=== PATIENT | male | born 1980 | race Caucasian/White ===

== ENCOUNTER 2019-12-29 18:06 | Emergency (ER) | payer OTHER, SELFPAY ==
[2019-12-29 18:17] VITALS: BP 132/78; PULSE 106; RESP 16; TEMP 37.1; O2SAT 98
--- NOTE | 2019-12-29 18:25 | ED.GENADULT ---
HPI - General Adult General Chief complaint: Skin/Abscess/Foreign Body Stated complaint: poison jossy Time Seen by Provider: 12/29/19 18:25 Source: patient and RN notes reviewed Mode of arrival: ambulatory Limitations: no limitations History of Present Illness HPI narrative: 39-year-old male presents with complaints of red, raised, and itching rash with swelling around LT eye for 1 day. Gary says he was outside doing yard work and face came in contact with poison jossy. Denies new changes in personal hygiene products or laundry detergent. No new foods or medications. No burning, bleeding, or drainage. Denies fever, chills, headaches, weakness, fatigue, myalgia, facial swelling, or tongue swelling. Denies chest pain or dyspnea. Tolerating po intake well. The patient reports they have not been diagnosed with COVID-19. The patient reports they are not waiting for the results of a COVID-19 lab test. The patient reports they do not have fever, chills, weakness, fatigue, myalgia, or facial swelling. The patient reports they do not have a new or worsening cough or shortness of breath. Denies chest pain. The patient reports they do not have any rhinorrhea, congestion, sore throat, nausea, vomiting, abdominal pain, and diarrhea. Tolerating po intake well. Denies recent traveling. Denies concerns for COVID-19 or exposures been home since [id number] order except for essential household needs, working, and return home. At this time, patient is not suspected of having COVID-19. Some parts of this dictation were generated by voice recognition software and may contain typographical and/or grammatical inaccuracies. Related Data Allergies Allergy/AdvReac Type Severity Reaction Status Date / Time aspirin Allergy Unknown Unknown Verified 12/29/19 18:20 Review of Systems Review of Systems: Narrative: CONSTITUTIONAL: Denies fever, chills, sweats. EYES: Denies visual changes, redness, discharge. ENT: Denies rhinorrhea, congestion, sore throat, otalgia. CARDIOVASCULAR: Denies chest pain, palpitations, edema. RESPIRATORY: Denies dyspnea, wheezing, cough. GASTROINTESTINAL: Denies abdominal pain, nausea, vomiting, diarrhea. GENITOURINARY: Denies dysuria, hematuria, abnormal discharge SKIN: Complaints of red, raised, and itching rash with swelling around LT eye . Denies drainage. MUSCULOSKELETAL: Denies acute back pain, joint pain, or myalgia. NEUROLOGIC: Denies numbness or focal weakness. PSYCHIATRIC: Denies anxiety or depression. All other systems reviewed & are unremarkable except as noted in HPI and below. [facility] Past Medical History Medical History (Updated 12/30/19 @ 00:00 by Jasmin Melendez) Asthma Surgical History Surgical History (Updated 12/29/19 @ 18:36 by LAMBERTO Tobar) No significant past surgical history Family History Family History (Updated 12/29/19 @ 18:36 by LAMBERTO Tobar) Father Hypertension Mother Alcohol abuse Social History Social History (Updated 12/31/19 @ 13:18 by Tracy Brown [facility]) Smoking packs per day: 1.5 Smoking cigarettes per day: 30.0 Years smoked: 20 Smoking pack-years: 30.00 Smoking status: Current every day smoker Tobacco type: cigarettes Second hand tobacco smoke exposure: No Alcohol intake: never Substance use: current Substance use type: marijuana Gender identity (if verbalized by the patient): Male Comments At time of signature, agree with nurse past medical, surgical, social, and family history. There is no relevant family history pertinent to the presenting complaint. Exam Narrative: Exam Narrative: GENERAL: This is a well-nourished, well-developed patient, in no apparent distress. Talking in full sentences without deficit and ambulate with steady gait without dyspnea. HEAD: normocephalic, atraumatic. EYES: PERRL. Bilateral sclera clear/white, no swelling, no tenderness on palpation to eye. Vision is grossly int
[2019-12-29] MEDS: methylPREDNISolone SOD SUCC 125 MG VIAL IM (18:34)
--- NOTE | 2019-12-29 19:02 | PC.NURSE ---
Patient has an episode of lightheadedness, nausea, and B/P drop post solu-medrol injection--1844-called to room feeling lightheaded, color pale and sweating-laid down and feet elevated--BP 102/60 range--sweating and feeling nauseated-given cool towel for head. 1849-dry heaves-turned to side -B/P-110/60's--feeling a little better after dry heaving. States he feels better on his side. 1854-B/P 110/60 reports he is feeling much better. Color improved. Had patient continue to lay on side. 1899 assisted to a sitting posting--Denies any further lightheadedness--color pink. 1904 Discharged. B/P remains 110/60 range at discharge.
== END 2019-12-29 19:05 | disposition home or self-care (01) ==
PROVIDERS: Emergency Provider Nurse Practitioner Family; PCP Internal Medicine
DX: L23.7 Allergic contact dermatitis due to plants, except food (principal); F17.210 Nicotine dependence, cigarettes, uncomplicated
CPT/HCPCS: 96372; 99213; G0463; J2930

== ENCOUNTER 2020-01-19 14:49 | Emergency (ER) | payer OTHER, SELFPAY ==
[2020-01-19 14:58] VITALS: BP 158/88; PULSE 113; RESP 20; TEMP 37.4; O2SAT 98
--- NOTE | 2020-01-19 15:16 | ED.SKABFB ---
HPI - Skin/Abscess/Foreign Bdy General Chief complaint: Wound/Laceration Stated complaint: tick bite Time Seen by Provider: 01/19/20 15:08 Source: patient and RN notes reviewed Mode of arrival: ambulatory Limitations: no limitations History of Present Illness HPI narrative: Patient presents today complaining of a tick bite to the left chest. He first noticed a tick 3 days ago and pulled it out. Since that time, redness has worsened. Denies any current pain. He has tried no OTC treatment prior to arrival. MD complaint: insect bite/sting Related Data Allergies Allergy/AdvReac Type Severity Reaction Status Date / Time aspirin Allergy Unknown Other Verified 01/19/20 15:09 Review of Systems Review of Systems: Narrative: CONSTITUTIONAL: Denies body aches, fever, chills, or sweats. EYES: Denies visual changes, redness, or discharge. ENT: Denies rhinorrhea, congestion, sore throat, or otalgia. CARDIOVASCULAR: Denies chest pain, palpitations, or edema. RESPIRATORY: Denies cough or dyspnea. GASTROINTESTINAL: Denies abdominal pain, nausea, vomiting, or diarrhea. GENITOURINARY: Denies dysuria or hematuria. SKIN: Denies rash, itching, or wounds. + Insect bite to left chest MUSCULOSKELETAL: Denies back pain, joint pain, or myalgia. NEUROLOGIC: Denies headache, numbness, tingling, or weakness. PSYCH: Denies depression or anxiety. [facility] Past Medical History Medical History (Updated 01/19/20 @ 15:18 by Jena Chaves, LAMBERTO, ) Asthma Surgical History Surgical History (Updated 12/29/19 @ 18:36 by TIFFANY TobarP) No significant past surgical history Family History Family History (Updated 12/29/19 @ 18:36 by LAMBERTO Tobar) Father Hypertension Mother Alcohol abuse Social History Social History (Updated 12/31/19 @ 13:18 by Tracy Brown [facility]) Smoking packs per day: 1.5 Smoking cigarettes per day: 30.0 Years smoked: 20 Smoking pack-years: 30.00 Smoking status: Current every day smoker Tobacco type: cigarettes Second hand tobacco smoke exposure: No Alcohol intake: never Substance use: current Substance use type: marijuana Gender identity (if verbalized by the patient): Male Comments At time of signature, I have reviewed and agree with nursing past medical, surgical, social and family history unless otherwise noted. Please see nursing chart for further information. There is no relevant family history pertinent to the presenting complaint Exam Narrative: Exam Narrative: GENERAL: Well-appearing, well-nourished, and in no acute distress. HEAD: Normocephalic, atraumatic. EYES: EOMI. No redness or drainage. Conjunctivae normal. ENT: Mucous membranes pink and moist. NECK: Normal AROM. CHEST: No respiratory distress. EXTREMITIES: Normal range of motion. No edema. SKIN: Warm, dry, no rash. Capillary refill normal. Normal skin turgor. 6cm area of circular erythema to left upper chest with 1cm center induration and puncture wound. No fluctuance. Does not appear to be erythema migrans as there is no clearing of a portion of the rash. Erythema does not appear as bulls eye pattern. NEURO: No focal deficits. Alert and oriented x3. Gait steady. PSYCH: Normal affect. No signs of depression or anxiety. Course Vital Signs Vital signs: Vital Signs Temperature 99.3 F 01/19/20 14:58 Pulse Rate 113 H 01/19/20 14:58 Respiratory Rate 01/19/20 14:58 Blood Pressure 158/88 H 01/19/20 14:58 Pulse Oximetry 98 01/19/20 14:58 Temperature 99.3 F 01/19/20 14:58 Pulse Rate 113 H 01/19/20 14:58 Respiratory Rate 01/19/20 14:58 Blood Pressure 158/88 H 01/19/20 14:58 Pulse Oximetry 98 01/19/20 14:58 Reviewed. Pt has been instructed to follow up with his PCP regarding his elevated blood pressure today. MDM - Skin/Abscess/Foreign Bdy Differential Diagnosis Differential diagnosis: Likely abscess of skin or subcutaneous tissu
== END 2020-01-19 15:21 | disposition home or self-care (01) ==
PROVIDERS: Emergency Provider Nurse Practitioner; PCP Internal Medicine
DX: S20.362A Insect bite (nonvenomous) of left front wall of thorax, initial encounter (principal); J45.909 Unspecified asthma, uncomplicated; F17.210 Nicotine dependence, cigarettes, uncomplicated; R03.0 Elevated blood-pressure reading, without diagnosis of hypertension; W57.XXXA Bitten or stung by nonvenomous insect and other nonvenomous arthropods, initial encounter
CPT/HCPCS: 99213; G0463

== ENCOUNTER 2024-07-03 14:53 | Emergency (ER) | payer OTHER, MEDICAID, SELFPAY ==
--- NOTE | 2024-07-03 15:13 | ED.URI ---
HPI - URI/Sore Throat General Chief Complaint: Upper Respiratory Infection Stated Complaint: Sinus/Cough Time Seen by Provider: 07/03/24 15:13 Source: patient, RN notes reviewed and old records reviewed Mode of arrival: ambulatory Limitations: no limitations Related Data Home Medications Medication Instructions Recorded Confirmed loratadine 10 mg tablet (Claritin) 10 mg PO DAILY 12/19/23 07/03/24 Allergies Allergy/AdvReac Type Severity Reaction Status Date / Time aspirin Allergy Unknown Other Verified 07/03/24 15:04 Review of Systems Review of Systems: All systems reviewed & are unremarkable except as noted in HPI and below Constitutional: Constitutional: Reports no additional constitutional complaints ENT: Reports system reviewed and no additional complaints, except as documented Cardiovascular: Cardiovascular: Reports no additional cardiovascular complaints Respiratory: Respiratory: Reports no additional respiratory complaints Gastrointestinal: Gastrointestinal: Reports no additional gastrointestinal complaints [facility] Past Medical History Medical History Asthma Surgical History Surgical History No significant past surgical history Family History Family History Father Hypertension Diabetes mellitus Mother Alcohol abuse Depression Anxiety Social History Social History Smoking packs per day: 1 Smoking cigarettes per day: 20.0 Years smoked: 30 Smoking pack-years: 30.00 Smoking status: Current every day smoker Tobacco type: cigarettes Second hand tobacco smoke exposure: No Alcohol intake: never Substance use: current Substance use type: marijuana Do You Feel Safe in your Home?: Yes Lack of Transportation: No Lack of Food: Never True Current Housing: I Have Housing Concerned About Future Housing: No Difficulty Paying Gas/Electric Bills: No Difficulty Paying for Meds: No Currently Unemployed: No Education: High School Diploma/GED Difficulty w/ Childcare or Family Care: No Living arrangements: with family Occupation/Education: occupation Gender identity (if verbalized by the patient): Male Comments At the time of my signature, I reviewed and agree with the nursing past medical, surgical, social, and family history. There is no relevant family history pertinent to the patient complaint. Exam Const: General: cooperative, no acute distress, alert and awake Orientation/consciousness: oriented to person, oriented to place and oriented to time HENMT: Head: normal to inspection Resp: Effort & Inspection: normal respiratory effort and able to speak in complete sentences Auscultation: clear to auscultation bilaterally, no crackles, no rales, no rhonchi and no wheezes Cardio: Palpation: normal PMI Rate: regular rate Rhythm: regular rhythm Heart sounds: S1 normal heart sound present and S2 normal heart sound present Neuro: General: oriented to person, oriented to place and oriented to time Cranial nerves: Yes CN's II-XII intact bilaterally Psych: Appearance: grossly normal Thought process: Normal thought process present Insight: Good insight present (Psych) Judgement: Good judgement present (Psych) Course Course Level of Care: Express Care Visit Vital Signs Vital signs: Reviewed Discharge Plan Discharge Clinical Impression: Pneumonia Patient Disposition: Home, Self-Care Condition: Stable Instructions: Antibiotic Form, Pneumonia (ED) Additional Instructions: Take medications as prescribed. Emergency department for new or worse symptoms. Follow up with primary care provider Patient Language: Lithuanian Prescriptions: New azithromycin 250 mg tablet See Rx Instructions .ROUTE .COMPLEX Qty: 6 0RF Rx Instructions: For 250 mg dose pack: take 500 mg today (day 1), then 250 mg for 4 days (days 2-5) prednisone 50 mg tablet 50 mg PO DAILY Qty: 5 0RF albuterol sulfate [Ventolin HFA] 90 mcg/actuation HFA aerosol inhaler 2 puff inhalation QID PRN (Reason: shortness of breath or wheezing) Qty: 8.5 0RF No Action loratadine [Claritin] 10 mg tablet 10 mg PO DAILY atorvastatin 10 mg tablet 10 mg PO QHS Qty: 90 0RF Rx Instructions: DUE FOR APPOINTMENT IN [facility] Follow-up/Referrals: Gonzales Jimenez DO [Primary Care Provider] - 2 Weeks Stand Alone Forms: Work/School Release IP Time of Disposition: 15:32
[2024-07-03 15:15] VITALS: BP 152/89; PULSE 93; RESP 18; O2SAT 98
== END 2024-07-03 15:35 | disposition home or self-care (01) ==
PROVIDERS: Emergency Provider Nurse Practitioner Family; PCP Internal Medicine
DX: J18.9 Pneumonia, unspecified organism (principal); F17.210 Nicotine dependence, cigarettes, uncomplicated; F12.90 Cannabis use, unspecified, uncomplicated; J45.909 Unspecified asthma, uncomplicated
CPT/HCPCS: 99213; G0463

== ENCOUNTER 2024-10-02 09:12 | Emergency (ER) | payer OTHER, MEDICAID, SELFPAY ==
[2024-10-02 09:37] VITALS: BP 155/94; PULSE 102; RESP 16; TEMP 36.7; O2SAT 98
--- NOTE | 2024-10-02 10:00 | ED_ITS ---
HPI - General Adult General Chief complaint: Skin/Abscess/Foreign Body Stated complaint: knot on butt History of Present Illness HPI narrative: Gary Mcgee is a 44-year-old male who presents today with past medical history high cholesterol, smoker who reports that 3 days ago he noticed a painful bump on his right butt cheek. He states that he thinks the swelling has gone down some but he still having pain to the area. He denies noticing drainage to the area. He denies any fevers. 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 Related Data Home Medications ?Medication ?Instructions ?Recorded ?Confirmed ?Last Taken ?Type loratadine 10 mg tablet (Claritin) 10 mg PO DAILY 12/19/23 10/02/24 Unknown H istory Allergies Allergy/AdvReac Type Severity Reaction Status Date / Time aspirin Allergy Unknown Other Verified 10/02/24 09:30 Review of Systems Review of Systems: All systems reviewed & are unremarkable except as noted in HPI and below PMFSH Past Medical History Medical History Asthma Surgical History Surgical History No significant past surgical history Family History Family History Father Hypertension Diabetes mellitus Mother Alcohol abuse Depression Anxiety Social History Social History Smoking packs per day: 1 Smoking cigarettes per day: 20.0 Years smoked: 30 Smoking pack-years: 30.00 Smoking status: Current every day smoker Tobacco type: cigarettes Second hand tobacco smoke exposure: No Alcohol intake: never Substance use: current Substance use type: marijuana Do You Feel Safe in your Home?: Yes Lack of Transportation: No Lack of Food: Never True Current Housing: I Have Housing Concerned About Future Housing: No Difficulty Paying Gas/Electric Bills: No Difficulty Paying for Meds: No Currently Unemployed: No Education: High School Diploma/GED Difficulty w/ Childcare or Family Care: No Living arrangements: with family Occupation/Education: occupation Gender identity (if verbalized by the patient): Male Exam Narrative: GENERAL: Well-appearing, well-nourished, and in no acute distress. HEAD: Normocephalic, atraumatic. EYES: PERRLA and EOMI. ENT: Nares clear, no rhinorrhea or epistaxis. Mucous membranes moist. Oropharynx without tonsillar hypertrophy exudate or other lesions. Bilateral TMs pearly hanks non bulging NECK: Supple. No adenopathy or masses. No carotid bruits or JVD CHEST: Clear to auscultation. No respiratory distress. No wheezes rales or rhonchi HEART: Regular rate and rhythm. No murmur heard. Normal peripheral pulses. ABDOMEN: Soft, nontender, nondistended, normal active bowel sounds. EXTREMITIES: Normal range of motion. No edema. SKIN: Warm, dry, no rash. NEURO: No focal deficits. Alert and oriented x3. PSYCH: Normal mood and affect. Course Course Level of Care: Express Care Visit Vital Signs Vital signs: Vital Signs Temperature 36.7 C 10/02/24 09:37 Pulse Rate 102 H 10/02/24 09:37 Respiratory Rate 16 10/02/24 09:37 Blood Pressure 155/94 H 10/02/24 09:37 Pulse Oximetry 98 10/02/24 09:37 Oxygen Delivery Room Air 10/02/24 09:37 Temperature 36.7 C 10/02/24 09:37 Pulse Rate 102 H 10/02/24 09:37 Respiratory Rate 16 10/02/24 09:37 Blood Pressure 155/94 H 10/02/24 09:37 Pulse Oximetry 98 10/02/24 09:37 Oxygen Delivery Room Air 10/02/24 09:37 Medical Decision Making [facility] Narrative Medical decision making narrative: 44-year-old male who presents with complaints of having this painful swelling to his right butt cheek more on the inner side that started 3 days ago. He states that he has been doing warm compresses, taking Tylenol and Epsom salt baths. He states that he feels like the swelling has gone down some he still having a lot of pain. With pt being stable, looking well consulted with Dr. Mcqueen and she agrees that d/c with PO antibiotics with close follow up and strict return precautions is appropriate patient is agreeable to this plan He verbalizes understanding and agrees to go to the ER for any worsening symptoms or concerns. Medical Records Medical records reviewed: Yes I reviewed the external patient's medical records. Vital Signs Vital Signs: Vital Signs Temperature 36.7 C 10/02/24 09:37 Pulse Rate 102 H 10/02/24 09:37 Respiratory Rate 16 10/02/24 09:37 Blood Pressure 155/94 H 10/02/24 09:37 Pulse Oximetry 98 10/02/24 09:37 Oxygen Delivery Room Air 10/02/24 09:37 Temperature 36.7 C 10/02/24 09:37 Pulse Rate 102 H 10/02/24 09:37 Respiratory Rate 16 10/02/24 09:37 Blood Pressure 155/94 H 10/02/24 09:37 Pulse Oximetry 98 10/02/24 09:37 Oxygen Delivery Room Air 10/02/24 09:37 Vitals reviewed Discharge Plan Discharge Clinical Impression: Boil, buttock Patient Disposition: Home, Self-Care Condition: Stable Instructions: Antibiotic Form Additional Instructions: Start taking the Augmentin twice daily for the area on her buttock. You may continue to do warm compresses as you have been doing please follow-up with your primary care doctor as discussed you may also make an appointment with General surgery Dr. Olvera If you develop any worsening symptoms such as Fever/ chills/ increased swelling/ increased pain/ then proceed to the ER> Patient Language: Northern Irish Prescriptions: New amoxicillin-pot clavulanate 875-125 mg tablet 1 tablet PO Q12H Qty: 20 0RF No Action loratadine [Claritin] 10 mg tablet 10 mg PO DAILY atorvastatin 10 mg tablet 10 mg PO QHS Qty: 90 0RF Rx Instructions: LAST REFILL UNTIL APPOINTMENT IS SCHEDULED. Follow-up/Referrals: Margie Olvera MD [Physician] - 1 Week Gonzales Jimenez DO [Primary Care Provider] - 3 Days Time of Disposition: 10:47
== END 2024-10-02 10:58 | disposition home or self-care (01) ==
PROVIDERS: Emergency Provider Nurse Practitioner Family; PCP Internal Medicine
DX: L02.32 Furuncle of buttock (principal); F17.210 Nicotine dependence, cigarettes, uncomplicated
CPT/HCPCS: 99213; G0463

== ENCOUNTER 2024-11-02 00:05 | Day surgery (SDC) | payer OTHER, MEDICAID, SELFPAY ==
--- NOTE | 2024-10-30 09:20 | PC.NURSE ---
Report to the Outpatient Waiting Room, entrance under the green pavilion located off [facility], at time __12:30 PM on date _11/02/24 . Planned Procedure Time: __2:30 PM .? Time changes happen often and if your time is changed the preop area will call you the afternoon before. - You and your visitor will be asked to self-screen and do not enter if you have any COVID symptoms. Please call surgeon if you need to reschedule. - A mask is optional within the hospital at this time. Patients may have clear liquids (water, carbonated beverages, clear teas, apple juice) until 3 hours prior to surgery ( 11:30 AM)with a maximum of 20 ounces. - No food from midnight until time of surgery and no smoking, or chewing tobacco (or any form of nicotine). No chewing gum, candy or mints. Take only the following medications with a SIP of water on the morning of surgery: __INHALER IF NEEDED DO NOT STOP ANY OF YOUR OTHER PRESCRIPTION MEDICATIONS PRIOR TO SURGERY EXCEPT THE FOLLOWING Hold all vitamins and supplements for 3 days per anesthesiologist. Medications to discontinue per physician NONE Please no make-up, nail mongolian, hairspray, perfume, deodorant, or body powder the day of surgery.? No jewelry (including any body piercings) or valuables the day of surgery, leave them at home.? Please take a shower or bath the night before, or the morning of, surgery with an antibacterial soap.? Wear comfortable, loose fitting clothing.? Children are encouraged to wear pajamas. - Jewelry must be removed prior to entering the operating room.? Rings and piercings that are not removed may be cut off. - The hospital will not accept responsibility for valuables.? - Please leave all valuables, including medications, at home the day of surgery. If you are going home after surgery, a licensed team driver must drive you home.? - NO public transportation without another adult if you receive anesthesia. - We recommend that an adult stay with you for 24 hours following discharge. - We also recommend that you do not drive, make important decision, drink alcoholic beverages, or take any drugs that were not prescribed by your health care provider for at least 24 hours after your discharge time. Follow any additional instructions given to you from your surgeon. Telephone instructions given to ___PATIENT and asked if any additional questions and then verbalized understanding. Patient advised to call surgeon office or pre surgery nurse liaison [phone] if any additional questions.
[2024-10-30 09:34] VITALS: BMI 32.5
[2024-11-02] VITALS (8 sets, daily range): BP systolic 132–158; BP diastolic 83–103; PULSE 77–95; RESP 12–20; TEMP 36.6–36.9; O2SAT 95–100
[2024-11-02] MEDS: ACETAMINOPHEN 500 MG TABLET 1000 MG PO (13:05)
[2024-11-02] MEDS: KETOROLAC 15 MG/ML VIAL (*BKC) IV PUSH (13:06)
[2024-11-02] MEDS: LACTATED RINGERS 1,000 ML 30 ML IV CONT ×2 (13:06→14:40)
--- NOTE | 2024-11-02 13:37 | WPDHPUPDATE1 ---
History and Physical Update Update Date/Time: 11/02/24 13:37 History and Physical has been reviewed, including an updated exam of the patient. There are NO changes in the patient's condition. Risks, benefits, and alternatives have been discussed and questions answered. Patient agrees to proceed with procedure.
--- NOTE | 2024-11-02 13:47 | P.PNAN_ITS ---
Anes - Initial Pre Proc Eval Procedure: Operation Date: 11/02/24 14:30 Proposed Procedures p Rectal Examination Under Anesthesia for Excision of Chronic Abscess Cavity - Margie Olvera MD Date/Time: 11/02/24 13:47 Surgeon: Margie Olvera MD Pre Op Diagnosis: perirectal abscess Patient Data Age: 44 Gender: M Height: 1.75 m Weight: 98.9 kg Last Vital Signs Temp 98.5 F 11/02/24 12:57 Pulse 95 11/02/24 12:57 Resp 16 11/02/24 12:57 BP 158/103 H 11/02/24 12:57 Pulse Ox 95 11/02/24 12:57 O2 Del Method Room Air 11/02/24 12:57 Allergies Allergy/AdvReac Type Severity Reaction Status Date / Time aspirin Allergy Unknown Other Verified 11/02/24 12:54 Home Medications ?Medication ?Instructions ?Recorded ?Confirmed ?Type loratadine 10 mg tablet (Claritin) 10 mg PO DAILY 12/19/23 10/30/24 History atorvastatin 10 mg tablet 10 mg PO QHS #90 tabs 07/30/24 10/30/24 Rx amoxicillin 875 mg-potassium See Rx Instructions .Route 10/14/24 10/30/24 Rx clavulanate 125 mg tablet .COMPLEX #28 tabs albuterol sulfate 90 mcg/actuation 2 puff inhalation PRN SHORTNESS 10/30/24 10/30/24 History aerosol inhaler AND BREATH Patient hx anesthesia problems: none Family hx anesthesia problems: none Results Review: All pre-operative results and documents have been reviewed as part of the pre- operative evaluation. [facility] Past Medical History Medical History Asthma Surgical History Surgical History No significant past surgical history Family History Family History Father Hypertension Diabetes mellitus Mother Alcohol abuse Depression Anxiety Social History Social History Smoking packs per day: 1 Smoking cigarettes per day: 20.0 Years smoked: 30 Smoking pack-years: 30.00 Smoking status: Current every day smoker Tobacco type: cigarettes Second hand tobacco smoke exposure: No Alcohol intake: never Substance use: current Substance use type: marijuana Do You Feel Safe in your Home?: Yes Lack of Transportation: No Lack of Food: Never True Current Housing: I Have Housing Concerned About Future Housing: No Difficulty Paying Gas/Electric Bills: No Difficulty Paying for Meds: No Currently Unemployed: No Education: High School Diploma/GED Difficulty w/ Childcare or Family Care: No Living arrangements: with family Occupation/Education: occupation Gender identity (if verbalized by the patient): Male Anes - Eval Final PreProcedure Day of Procedure 11/02/24 13:47 Patient weight: obese Lungs: normal air movement Airway: Mallampati scale (Missing all upper teeth, missing many lower teeth. ) Neurological: alert and oriented Last oral intake: >/= 8 hours ASA classification: III Emergent: no Anesthetic plan: proceed Anesthesia type and monitoring: general LMA and standard monitoring Results Review: All pre-operative results and documents have been reviewed as part of the pre- operative evaluation. Hyperlipidemia, Smoker 1 ppd for 25 years. Informed Consent: The patient's anesthetic plan and its attendant risks and benefits were discussed with the patient/family/POA. Questions were solicited and answers provided to the satisfaction of the patient/family/POA.
[2024-11-02] MEDS: BUPIVACAINE/EPINEPHRINE 0.5% 30 ML VIAL 10 ML INFILTRATE (13:59)
[2024-11-02] MEDS: ceFAZolin 2 GM/D5W 50 ML 2 GM/50 ML BAG IVPB (13:59)
--- NOTE | 2024-11-02 14:58 | W.PM.PROC2 ---
Procedure Note - Detailed Date of Procedure 11/02/24 Pre-op Diagnosis perirectal abscess Post-op Diagnosis Same Procedure Performed rectal exam under anesthesia, excision of chronic abscess cavity right perirectal area measuring 2 x 2 cm Surgeon Margie Olvera MD Anesthesia General and Local Indications 44-year-old male with chronic nonhealing perirectal abscess on the right Findings chronic perirectal abscess cavity measuring 2 x 2 cm Description of Procedure The patient was taken the operating room and placed in the modified lithotomy position. After adequate induction of general anesthesia, the patient was prepped and draped in the normal sterile fashion. A time-out was then done to verify the patient's identity, as well as procedure being performed. I began by doing a rectal exam. This was done 1st digitally and then with an anoscope. The exam was largely unremarkable other than some non thrombosed external hemorrhoids. I then localized the area in and around this abscess cavity on the right. Upon opening the cavity, a small amount of purulent drainage was noted. I then used a probe to possibly identify a fistula to the anal canal. No fistulous tract was identified. At this point I made an elliptical incision around the abscess cavity and excise this in full. This will be sent to pathology for further review. I then gained hemostasis with the Bovie cautery. This cavity measured approximately 2 x 2 cm. I then copiously irrigated the cavity and no other pathology was noted. I then packed the wound with 1 in iodoform packing. Sterile dressing was then placed. The patient tolerated the procedure well and was extubated postoperatively. He will be sent to the recovery room in stable condition. Estimated Blood Loss 5 Drains No Packing Yes Pathology Yes Complications No immediate complications Condition Stable Disposition PACU [facility] Billing Surgery - Charge Forward: Surgery Billing
[2024-11-02] MEDS: oxyCODONE HCL (*CRX) 5 MG TAB IR PO (15:35)
== END 2024-11-02 16:07 | disposition home or self-care (01) ==
PROVIDERS: PCP Internal Medicine; Visit Provider Surgery
PROC: (CPT 46040; principal; 2024-11-02 14:30)
DX: K61.1 Rectal abscess (principal); K64.5 Perianal venous thrombosis; J45.909 Unspecified asthma, uncomplicated; F12.90 Cannabis use, unspecified, uncomplicated; E66.9 Obesity, unspecified; Z68.32 Body mass index [BMI] 32.0-32.9, adult; Z79.51 Long term (current) use of inhaled steroids
CPT/HCPCS: 46922; 88304; A9270; J0690; J1100; J1171; J1885; J2003; J2250; J2405; J2704; J3010; J7120